=== PATIENT | male | born 1990 | race Caucasian/White ===

== ENCOUNTER 2023-04-08 04:28 | Emergency (ER) | payer OTHER ==
[2023-04-08 04:48] VITALS: BP 133/92; O2SAT 98
[2023-04-08] MEDS ORDERED: KETOROLAC 30 MG/ML VIAL IM STA (05:23)
--- NOTE | 2023-04-08 05:48 | ED Physician Documentation ---
PD HPI CHEST PAIN - Stated complaint Stated Complaint: CHEST PX - Chief complaint Chief Complaint: Cardiac - History obtained from History obtained from: Patient - Additional information Additional information: 33yM , previously healthy with no FH cardiac disease, nonsmoker, p/w L chest wall pain X 3 days, worsening upon waking from sleep at 3:30 am this morning. patient denies cough, pleurisy, soa, nausea, leg swelling, fever, hemoptysis. he did work out recently. denies trauma or injury. pain is worse with pressing on it PD PAST MEDICAL HISTORY - Past Medical History Past Medical History: No - Past Surgical History Past Surgical History: No - Allergies Allergies/Adverse Reactions: Allergies Allergy/AdvReac Type Severity Reaction Status Date / Time No Known Drug Allergies Allergy Verified 04/08/23 04:42 - Social History Does the pt smoke?: No Smoking Status: Never smoker Does the pt drink ETOH?: No Does the pt have substance abuse?: No - Immunizations Immunizations are current?: Yes - POLST Patient has POLST: No PD ED PE NORMAL - Vitals Vital signs reviewed: Yes - General General: Alert and oriented X 3, No acute distress, Well developed/nourished - HEENT HEENT: Atraumatic, PERRL, EOMI - Neck Neck: Supple, no meningeal sign - Cardiac Cardiac: RRR - Respiratory Respiratory: No respiratory distress, Clear bilaterally - Derm Derm: Normal color, Warm and dry Results - Vitals Vitals: Vital Signs - 24 hr 04/08/23 04:38 Temperature 37.0 C Heart Rate 51 L Respiratory 18 Rate Blood Pressure 133/92 H O2 Saturation 98 Oxygen O2 Source Room air - EKG (time done) 0435 EKG releavant findings:: EKG personally interpreted by author of this note. Relevant findings are: Rate: Rate (enter#) (49) Rhythm: Sinus bradycardia [place]: Normal Intervals: Normal [place] QRS: Normal Ischemia: ST elevation c/w repol - Labs Labs: Laboratory Tests 04/08/23 04/08/23 05:50 05:50 WBC 8.3 RBC 4.64 L Hgb 14.5 Hct 43.2 MCV 93.1 MCH 31.3 H MCHC 33.6 RDW 12.1 Plt Count 200 MPV 9.2 Neut # (Auto) 4.9 Lymph # (Auto) 2.4 [place] # (Auto) 0.8 Eos # (Auto) 0.2 Baso # (Auto) 0.0 Absolute Nucleated RBC 0.00 Nucleated RBC % 0.0 Sodium 138 Potassium 4.2 Chloride 103 Carbon Dioxide 29 Anion Gap 6.0 BUN 11 Creatinine 1.0 Estimated GFR (MDRD) 87 L Glucose 97 Calcium 9.5 Total Bilirubin 0.6 AST 14 ALT 18 Alkaline Phosphatase 53 Troponin I High Sens 3.3 Total Protein 6.4 Albumin 4.1 Globulin 2.3 Albumin/Globulin Ratio 1.8 Lipase 30 PD Medical Decision Making - ED course ED course: 33yM presents with atypical chest pain X 3 days, with negative workup here in the ED including CBC, abdominal panel, trop. EKG with JIMI. CXR possible LLL pneumonia per radiologist read, however my wet read is no pneumonia and clniically the patient is well appearing and has no signs or symptoms of pneumonia. HEART score 0. PERC negative. plan to dc home and f/u outpatient with pcp. return precautions given. Departure - Departure Disposition: Home, Self Care Clinical Impression: Chest pain Condition: Good Instructions: ED Chest Pain NonCardiac Comments: You were seen in the emergency department for L chest pain. Your labwork and ekg were normal. Your chest xray showed possible left sided pneumonia, but given the fact that you don't have fever, cough or shortness of breath it is highly unlikely you have pneumonia. Most likely this is related to irritation of the muscles in your chest wall (costochondritis) or irritation to the lining of the lungs (pleuritis). Please follow-up with your primary care provider and return to the emergency department if you have any new or worsening symptoms or other concerns. Forms: PCP List
[2023-04-08 06:06] LABS: BASOPHILS % (AUTO) 0.5 %; EOSINOPHILS # (AUTO) 0.2 10^3/uL (0.0-0.7); EOSINOPHILS % (AUTO) 1.8 %; HCT - HEMATOCRIT 43.2 % (42.0-52.0); HGB - HEMOGLOBIN 14.5 g/dL (14.0-18.0); LYMPHOCYTES # (AUTO) 2.4 10^3/uL (1.5-3.5); LYMPHOCYTES % (AUTO) 28.9 %; MEAN CORPUSCULAR HEMOGLOBIN 31.3 pg (27.0-31.0); MEAN CORPUSCULAR HGB CONC 33.6 g/dL (32.0-36.0); MEAN CORPUSCULAR VOLUME 93.1 fL (80.0-94.0); MEAN PLATELET VOLUME 9.2 fL (7.4-11.4); MONOCYTES # (AUTO) 0.8 10^3/uL (0.0-1.0); MONOCYTES % (AUTO) 9.8 %; NEUTROPHILS # (AUTO) 4.9 10^3/uL (1.5-6.6); NEUTROPHILS % (AUTO) 58.6 %; PLT - PLATELET COUNT 200 10^3/uL (130-450); RED BLOOD COUNT 4.64 10^6/uL (4.70-6.10); RED CELL DISTRIBUTION WIDTH 12.1 % (12.0-15.0); WHITE BLOOD COUNT 8.3 x10^3/uL (4.8-10.8)
[2023-04-08 06:16] LABS: ALBUMIN 4.1 g/dL (3.2-5.5); ALBUMIN/GLOBULIN RATIO 1.8 (1.0-2.2); BILIRUBIN,TOTAL 0.6 mg/dL (0.2-1.0); CALCIUM 9.5 mg/dL (8.5-10.3); POTASSIUM 4.2 mmol/L (3.5-4.5); TOTAL PROTEIN 6.4 g/dL (6.4-8.9)
[2023-04-08 06:22] LABS: TROPONIN I HIGH SENSITIVITY 3.3 ng/L (2.3-19.7)
--- NOTE | 2023-04-08 08:36 | XRAY Report ---
PROCEDURE: Chest 1 View X-Ray INDICATIONS: Chest pain TECHNIQUE: One view of the chest was acquired. COMPARISON: None. FINDINGS: Surgical changes and devices: None. Lungs and pleura: Mild left lower lobe infiltrate. No pleural effusions or pneumothorax. Mediastinum: Mediastinal contours appear normal. Heart size is normal. Bones and chest wall: No suspicious bony lesions. Overlying soft tissues appear unremarkable. IMPRESSION: Mild left lower infiltrate suspicious for developing pneumonia. Findings are concordant with preliminary interpretation provided by [facility]. Reviewed by: Carol Garcia MD on 04/08/2023 8:34 AM PST Approved by: Carol Garcai MD on 04/08/2023 8:34 AM PST Station ID: [id number]
== END 2023-04-08 06:51 | disposition home or self-care (01) ==
LOC: ED 04:28
DX: R07.89 Other chest pain (principal)
CPT/HCPCS: 36415; 80053; 83690; 84484; 85025; 93005; 96372; 99283; 99284

== ENCOUNTER 2023-10-31 07:45 | Outpatient (CLI) | payer OTHER ==
[2023-10-31 12:30] LABS: BILIRUBIN,URINE NEGATIVE (NEGATIVE); GLUCOSE, URINE (UA) NEGATIVE (NEGATIVE); KETONES,URINE (UA) NEGATIVE (NEGATIVE); LEUKOCYTE ESTERASE, URINE NEGATIVE (NEGATIVE); NITRITE,URINE NEGATIVE (NEGATIVE); OCCULT BLOOD,URINE LARGE (NEGATIVE); PROTEIN,URINE NEGATIVE (NEGATIVE); UROBILINOGEN,URINE 0.2 (NORMAL) E.U./dL (NORMAL)
[2023-10-31 12:31] LABS: CLARITY,URINE CLEAR (CLEAR)
[2023-10-31 12:41] LABS: BACTERIA,URINE Rare /HPF (None Seen); RBC,URINE 0-5 /HPF (0-5); SQUAMOUS EPITHELIAL CELL,UR NONE SEEN (<= Few); WBC,URINE 0-3 /HPF (0-3)
== END 2023-10-31 08:00 | disposition home or self-care (01) ==
LOC: LAB.N 07:45
PROVIDERS: ATTEND Physician Assistant Medical
DX: R31.9 Hematuria, unspecified (principal)
CPT/HCPCS: 81001; 87086